=== PATIENT | female | born 1985 | race Caucasian/White ===

== ENCOUNTER 2017-07-12 11:31 | Emergency (ER) | payer BC, OTHER ==
[~2017-07-12] VITALS: Ht 175.3 cm; Wt 113.4 kg
[2017-07-12 11:42] VITALS: TEMP 36.4; Ht 175.3 cm; Wt 113.4 kg
[2017-07-12] MEDS ORDERED: NXM/40 PO (12:12)
[2017-07-12] MEDS ORDERED: VENL100T2 PO (12:12)
[2017-07-12] MEDS ORDERED: SODIUM CHLORIDE 0.9% 1000ML 1,000 ML IV STA (12:29)
--- NOTE | 2017-07-12 12:31 | EMERGENCY ROOM VISIT NOTE ---
History Report prepared by Chauncey: Lilo Crowe Under the Supervision of: Dr. Prince Ellis M.D. First contact with patient: 12:06 Chief Complaint: ABDOMINAL PAIN Stated Complaint: ABDOMINAL PAIN History of Present Illness The patient is a 32 year old female who presents to the Emergency Room with complaints of severe abdominal pain beginning last night. She states it goes all over and she has surges of pain. She states she feels like she is going to have a bowel movement but cannot. She denies any fevers, urinary symptoms, nausea, or vomiting. The patient is not sure of when her last bowel movement was. She states the pain began after she ate out at a restaurant last night. No vaginal bleeding or discharge. No pelvic pain. Source of History: patient Onset: last night Position: abdomen Symptom Intensity: severe Timing: other ("surges") Associated Symptoms: No fevers, No nausea, No vomiting, No urinary symptoms Review of Systems See HPI for pertinent positives and negatives. A total of ten systems were reviewed and were otherwise negative. Past Medical & Surgical Medical Problems: (1) Acid reflux (2) Acid reflux (3) Pneumonia Family History FHx: diabetes mellitus FHx: heart disease High blood pressure Social History Smoking Status: Never Smoker Smokeless Tobacco Use: No Alcohol Use: occasionally Housing Status: lives alone Occupation Status: employed Current/Historical Medications Scheduled Esomeprazole Magnesium (Nexium), 40 MG PO DAILY Senna/Docusate Sod (Senokot S), 1 TAB PO BID Venlafaxine Hcl (Effexor), 1 TAB PO DAILY Allergies Coded Allergies: No Known Allergies (Unverified , 07/12/17) Physical Exam Vital Signs Date Time Temp Pulse Resp B/P (MAP) Pulse Ox O2 Delivery O2 Flow Rate FiO2 07/12/17 15:32 104 18 131/75 100 Room Air 07/12/17 13:56 94 18 131/80 98 Room Air 07/12/17 11:42 36.4 106 20 138/98 100 Room Air Physical Exam Physical Exam GENERAL: She is oriented to person, place, and time. She appears well- developed and well-nourished. She does not appear distressed. ____ HENT: Exam performed. Head: Normocephalic and atraumatic. Right Ear: External ear normal. No mastoid tenderness. Left Ear: External ear normal. No mastoid tenderness. Mouth/Throat: The oropharynx is clear and moist. No trismus in the jaw. No dental abscesses or uvula swelling. No oropharyngeal exudate or tonsillar abscesses. ____ EYES: Conjunctivae and EOM are normal. Pupils are equal, round, and reactive to light. Right eye exhibits no discharge. Left eye exhibits no discharge. No scleral icterus. ____ NECK: Normal range of motion. Neck supple. No JVD present. No spinous process tenderness present. No carotid bruit present. No rigidity. No tracheal deviation and normal range of motion present. No Brudzinski's sign and no Kernig 's sign noted. ____ CV: Normal rate, regular rhythm, normal heart sounds and intact distal pulses. There is no peripheral edema. Palpable radial pulses bue. ____ PULM/CHEST: Effort normal and breath sounds normal. No respiratory distress. No stridor. She has no wheezes. She has no rales. Chest Wall: She exhibits no tenderness. ____ ABD: The abdomen is soft. Bowel sounds are normal. She has no distension. No mass is present. There is no tenderness. There is no rebound, no guarding, no Casillas's sign and no tenderness at McBurney's point. Rovsig negative Obese. MUSC/SKEL: Normal range of motion. There is no peripheral edema, tenderness or deformity. LYMPH: No cervical adenopathy. ____ NEURO: She is alert and oriented to person, place, and time. She has normal strength. No cranial nerve deficit or sensory deficit. Coordination and gait normal. GCS eye subscore is 4. GCS verbal subscore is 5. GCS motor subscore is 6. Cerebellar tests wnl. ____ SKIN: Skin is warm and dry. She is not diaphoretic. ____ PSYCH: She has a normal mood and affect. Her behavior is normal. Judgment and thought content normal. ____ Medical Decision & Procedures ER Provider Diagnostic Interpretation: Radiology results as stated below per my review and radiologist interpretation: ABDOMEN 2VIEW W/PA CHEST RTN CLINICAL HISTORY: Abdominal pain and constipation COMPARISON STUDY: No previous studies for comparison. FINDINGS: Erect chest reveals no free air. There is no focal pulmonary consolidation. Erect and supine views the abdomen reveal moderate fecal retention consistent with history of constipation. There are no transition zones indicate bowel obstruction. IMPRESSION: Significant fecal retention consistent with the clinical history of constipation. No conventional radiographic evidence of bowel obstruction or free air. Electronically signed by: Deepak Goncalves M.D. 07/12/2017 1:02 PM Dictated Date/Time: 07/12/2017 1:[address] ABD/PELVIS IV CONTRAST ONLY CLINICAL HISTORY: Epigastric and right lower quadrant abdominal pain COMPARISON STUDY: None. TECHNIQUE: Following the IV administration of 94 mL of Optiray-320, CT scan of the abdomen and pelvis was performed from the lung bases to the proximal femurs. Images are reviewed in the axial, sagittal, and coronal planes. IV contrast was administered without complication. A dose lowering technique was utilized adhering to the principles of ALARA. CT DOSE: 1202.23 mGy.cm FINDINGS: Lower chest: The heart is normal in size and configuration, without pericardial effusion. The lung bases and pleural spaces are clear. Liver: The contrast-enhanced liver is normal in size, contour, and attenuation. There is no intrahepatic biliary ductal dilatation. The hepatic veins and portal veins are patent. Gallbladder: Mildly distended. No calculi identified Spleen: Normal in size and attenuation. Pancreas: Unremarkable. Adrenal glands: Unremarkable. Kidneys: There is symmetric renal cortical enhancement. The kidneys are normal in size without hydronephrosis. Bowel: There are no transition zones indicate bowel obstruction. The appendix appears normal. There is moderate fecal retention. There is rectal wall thickening. The findings are suspicious for a proctitis. Clinical correlation in this regard is advocated. There is mild infiltration of the perirectal fat. Peritoneum: There is trace free pelvic fluid. Vasculature: The abdominal aorta is normal in course and caliber. Adenopathy: None. Pelvic viscera: The bladder, and pelvic viscera are unremarkable. Skeletal structures: No destructive osseous lesions are seen. IMPRESSION: 1. No evidence of bowel obstruction. No evidence of free air 2. Rectal wall thickening suspicious for a proctitis. Clinical correlation is advocated 3. Moderate fecal retention 4. No evidence of acute appendicitis Electronically signed by: Deepak Goncalves M.D. 07/12/2017 2:55 PM Dictated Date/Time: 07/12/2017 2:51 PM Laboratory Results 07/12/17 12:11 Red Blood Count 4.88, Mean Corpuscular Volume 86.5, Mean Corpuscular Hemoglobin 30.1, Mean Corpuscular Hemoglobin Concent 34.8, Mean Platelet Volume 11.1, Neutrophils (%) (Auto) 84.2, Lymphocytes (%) (Auto) 8.9, Monocytes (%) (Auto) 6.1, Eosinophils (%) (Auto) 0.4, Basophils (%) (Auto) 0.2, Neutrophils # (Auto) 14.13, Lymphocytes # (Auto) 1.50, Monocytes # (Auto) 1.02, Eosinophils # (Auto) 0.07, Basophils # (Auto) 0.04 07/12/17 12:11 Test 07/12/17 12:11 White Blood Count 16.79 K/uL (4.8-10.8) Red Blood Count 4.88 M/uL (4.2-5.4) Hemoglobin 14.7 g/dL (12.0-16.0) Hematocrit 42.2 % (37-47) Mean Corpuscular Volume 86.5 fL (80-100) Mean Corpuscular Hemoglobin 30.1 pg (25-34) Mean Corpuscular Hemoglobin Concent 34.8 g/dl (32-36) Platelet Count 306 K/uL (130-400) Mean Platelet Volume 11.1 fL (7.4-10.4) Neutrophils (%) (Auto) 84.2 % Lymphocytes (%) (Auto) 8.9 % Monocytes (%) (Auto) 6.1 % Eosinophils (%) (Auto) 0.4 % Basophils (%) (Auto) 0.2 % Neutrophils # (Auto) 14.13 K/uL (1.4-6.5) Lymphocytes # (Auto) 1.50 K/uL (1.2-3.4) Monocytes # (Auto) 1.02 K/uL (0.11-0.59) Eosinophils # (Auto) 0.07 K/uL (0-0.5) Basophils # (Auto) 0.04 K/uL (0-0.2) RDW Standard Deviation 44.3 fL (36.4-46.3) RDW Coefficient of Variation 14.2 % (11.5-14.5) Immature Granulocyte % (Auto) 0.2 % Immature Granulocyte # (Auto) 0.03 K/uL (0.00-0.02) Urine Color DK YELLOW Urine Appearance TURBID (CLEAR) Urine pH 5.0 (4.5-7.5) Urine Specific Mcintosh 1.030 (1.000-1.030) Urine Protein NEG (NEG) Urine Glucose (UA) NEG (NEG) Urine Ketones 2+ (NEG) Urine Occult Blood NEG (NEG) Urine Nitrite NEG (NEG) Urine Bilirubin NEG (NEG) Urine Urobilinogen NEG (NEG) Urine Leukocyte Esterase TRACE (NEG) Urine WBC (Auto) 1-5 /hpf (0-5) Urine RBC (Auto) 0-4 /hpf (0-4) Urine Hyaline Casts (Auto) 1-5 /lpf (0-5) Urine Epithelial Cells (Auto) >30 /lpf (0-5) Urine Bacteria (Auto) NEG (NEG) Urine Test NEG (NEG) Anion Gap 4.0 mmol/L (3-11) Est Creatinine Clear Calc Drug Dose 116.7 ml/min Estimated GFR () 94.3 Estimated GFR (Non- 81.3 BUN/Creatinine Ratio 21.3 (10-20) Calcium Level 9.8 mg/dl (8.5-10.1) Total Bilirubin 0.3 mg/dl (0.2-1) Direct Bilirubin < 0.1 mg/dl (0-0.2) Aspartate Amino Transf (AST/SGOT) 23 U/L (15-37) Alanine Aminotransferase (ALT/SGPT) 31 U/L (12-78) Alkaline Phosphatase 79 U/L (45-117) Total Protein 8.7 gm/dl (6.4-8.2) Albumin 4.1 gm/dl (3.4-5.0) Lipase 126 U/L (73-393) Laboratory results reviewed by me Medications Administered Medications (Trade) Dose Ordered Sig/Shannan Route Start Time Stop Time Status Last Admin Dose Admin Sodium Chloride 1,000 ml @ 999 mls/hr Q1H1M STAT IV 07/12/17 12:29 07/12/17 13:29 DC 07/12/17 12:37 999 MLS/HR ED Course 1227: The patient was evaluated in room C8. A complete history and physical exam was performed. 1229: Sodium Chloride 1000 ml @ 999 mls/hr 1518: Vital signs are stable. Repeat abdominal exam within normal limits. Labs show leukocytosis. CT shows no acute process but does show constipation. Patient will be discharged with medications for constipation and will follow up with PCP. DISCHARGE - Plan of care discussed with patient and questions answered. The patient was given both verbal and printed discharge instructions. The patient verbalized understanding and ability to comply. The patient is to seek outpatient follow up as noted in the discharge instructions. The patient verbalized understanding and ability to comply. The patient is discharged in stable condition. The patient was instructed to return for worsening symptoms. Medical Decision Vital signs are stable. Repeat abdominal exam within normal limits. Labs show leukocytosis. CT shows no acute process but does show constipation. Patient will be discharged with medications for constipation and will follow up with PCP. DISCHARGE - Plan of care discussed with patient and questions answered. The patient was given both verbal and printed discharge instructions. The patient verbalized understanding and ability to comply. The patient is to seek outpatient follow up as noted in the discharge instructions. The patient verbalized understanding and ability to comply. The patient is discharged in stable condition. The patient was instructed to return for worsening symptoms. Medication Reconcilliation Current Medication List: was personally reviewed by me Blood Pressure Screening Patient's blood pressure: Normal blood pressure Blood pressure disposition: Did not require urgent referral Impression Primary Impression: Constipation Scribe Attestation The scribe's documentation has been prepared under my direction and personally reviewed by me in its entirety. I confirm that the note above accurately reflects all work, treatment, procedures, and medical decision making performed by me. The chart was completed utilizing [employer] Speech voice recognition software. Grammatical errors, random word insertions, pronoun errors, and incomplete sentences are an occasional consequence of this system due to software limitations, ambient noise, and hardware issues. Any formal questions or concerns about the content, text, or information contained within the body of this dictation should be directly addressed to the physician for clarification. Departure Information Dispostion Home / Self-Care Prescriptions Senna/Docusate Sod (Senokot S) 1 Tab Tab 1 TAB PO BID, #20 TAB Prov: Prince Ellis M.D. 07/12/17 Referrals No Doctor, Assigned (PCP) Forms Call Back Authorization, HOME CARE DOCUMENTATION FORM, IMPORTANT VISIT INFORMATION Patient Instructions My [facility] Additional Instructions Use MiraLAX at home for constipation. Problem Qualifiers Primary Impression: Constipation Constipation type: unspecified constipation type Qualified Codes: K59.00 - Constipation, unspecified
[2017-07-12 12:37] LABS: BASO % 0.2 %; BASO ABS # 0.04 K/uL (0-0.2); EOS % 0.4 %; EOS ABS # 0.07 K/uL (0-0.5); HEMATOCRIT 42.2 % (37-47); HEMOGLOBIN 14.7 g/dL (12.0-16.0); IG# 0.03 K/uL (0.00-0.02); LYMPH % 8.9 %; MEAN CELL VOLUME 86.5 fL (80-100); MEAN CORPUSCULAR HEMOGLOBIN 30.1 pg (25-34); MEAN CORPUSCULAR HGB CONC 34.8 g/dl (32-36); MEAN PLATELET VOLUME 11.1 fL (7.4-10.4); MONO % 6.1 %; MONO ABS # 1.02 K/uL (0.11-0.59); NEUT % 84.2 %; NEUT ABS # 14.13 K/uL (1.4-6.5); PLATELET COUNT 306 K/uL (130-400); RED CELL DISTRIBUTION WIDTH CV 14.2 % (11.5-14.5); RED CELL DISTRIBUTION WIDTH SD 44.3 fL (36.4-46.3); WHITE BLOOD COUNT 16.79 K/uL (4.8-10.8)
[2017-07-12 12:56] LABS: ALBUMIN 4.1 gm/dl (3.4-5.0); ALT/SGPT 31 U/L (12-78); AST/SGOT 23 U/L (15-37); BLOOD UREA NITROGEN 20 mg/dl (7-18); CARBON DIOXIDE 22 mmol/L (21-32); CREATININE 0.93 mg/dl (0.60-1.20); GLUCOSE 122 mg/dl (70-99); LIPASE 126 U/L (73-393); POTASSIUM 3.9 mmol/L (3.5-5.1); SODIUM 135 mmol/L (136-145)
[2017-07-12 12:59] LABS: ALKALINE PHOSPHATASE 79 U/L (45-117); TOTAL PROTEIN 8.7 gm/dl (6.4-8.2)
--- NOTE | 2017-07-12 13:03 | DIAGNOSTIC IMAGING REPORT ---
ABDOMEN 2VIEW W/PA CHEST RTN CLINICAL HISTORY: Abdominal pain and constipation COMPARISON STUDY: No previous studies for comparison. FINDINGS: Erect chest reveals no free air. There is no focal pulmonary consolidation. Erect and supine views the abdomen reveal moderate fecal retention consistent with history of constipation. There are no transition zones indicate bowel obstruction. IMPRESSION: Significant fecal retention consistent with the clinical history of constipation. No conventional radiographic evidence of bowel obstruction or free air. Electronically signed by: Deepak Goncalves M.D. 07/12/2017 1:02 PM Dictated Date/Time: 07/12/2017 1:01 PM
[2017-07-12 13:07] LABS: CALCIUM 9.8 mg/dl (8.5-10.1)
[2017-07-12] MEDS ORDERED: OPTIRAY 320 IV PRN (14:45)
--- NOTE | 2017-07-12 14:57 | DIAGNOSTIC IMAGING REPORT ---
CT ABD/PELVIS IV CONTRAST ONLY CLINICAL HISTORY: Epigastric and right lower quadrant abdominal pain COMPARISON STUDY: None. TECHNIQUE: Following the IV administration of 94 mL of Optiray-320, CT scan of the abdomen and pelvis was performed from the lung bases to the proximal femurs. Images are reviewed in the axial, sagittal, and coronal planes. IV contrast was administered without complication. A dose lowering technique was utilized adhering to the principles of ALARA. CT DOSE: 1202.23 mGy.cm FINDINGS: Lower chest: The heart is normal in size and configuration, without pericardial effusion. The lung bases and pleural spaces are clear. Liver: The contrast-enhanced liver is normal in size, contour, and attenuation. There is no intrahepatic biliary ductal dilatation. The hepatic veins and portal veins are patent. Gallbladder: Mildly distended. No calculi identified Spleen: Normal in size and attenuation. Pancreas: Unremarkable. Adrenal glands: Unremarkable. Kidneys: There is symmetric renal cortical enhancement. The kidneys are normal in size without hydronephrosis. Bowel: There are no transition zones indicate bowel obstruction. The appendix appears normal. There is moderate fecal retention. There is rectal wall thickening. The findings are suspicious for a proctitis. Clinical correlation in this regard is advocated. There is mild infiltration of the perirectal fat. Peritoneum: There is trace free pelvic fluid. Vasculature: The abdominal aorta is normal in course and caliber. Adenopathy: None. Pelvic viscera: The bladder, and pelvic viscera are unremarkable. Skeletal structures: No destructive osseous lesions are seen. IMPRESSION: 1. No evidence of bowel obstruction. No evidence of free air 2. Rectal wall thickening suspicious for a proctitis. Clinical correlation is advocated 3. Moderate fecal retention 4. No evidence of acute appendicitis Electronically signed by: Deepak Goncalves M.D. 07/12/2017 2:55 PM Dictated Date/Time: 07/12/2017 2:51 PM
[2017-07-12] MEDS ORDERED: SENN-65 PO (15:14)
[2017-07-12 15:32] VITALS: BP 131/75; PULSE 104; O2SAT 100
== END 2017-07-12 15:34 | disposition home or self-care (01) ==
LOC: C.EDB 11:32 → C.EDC 15:34
DX: K59.00 Constipation, unspecified (principal); K21.9 Gastro-esophageal reflux disease without esophagitis